=== PATIENT | male | born 1980 | race African-American/Black ===

== ENCOUNTER 2024-07-03 11:58 | Inpatient (IN) | payer SELFPAY ==
[~2024-07-03] VITALS: Ht 187.3 cm; Wt 107.1 kg
[2024-07-03 10:30] VITALS: RESP 20
[2024-07-03] MEDS: DiphenhydrAMINE HCL 50 MG/ML VIAL IM ONE (12:32)
[2024-07-03] MEDS: HALOPERIDOL LACTATE 5 MG/ML VIAL IM ONE (12:33)
[2024-07-03] MEDS: LORazepam 2 MG/ML VIAL IM ONE (12:33)
[2024-07-03 12:56] LABS: COVID AG,FIA SOURCE NASAL SWAB
[2024-07-03 13:43] LABS: SARS-COV2 (COVID) ANTIGEN,FIA Negative (Negative)
[2024-07-03 13:49] LABS: BASOPHILS % (AUTO) 0.7 % (0.0-2.0); EOSINOPHILS % (AUTO) 0.4 % (1.0-6.0); HEMATOCRIT 38.8 % (41-53); HEMOGLOBIN 12.5 g/dL (13.5-17.5); LYMPHOCYTES # (AUTO) 1.9 K/uL (1.0-4.8); MEAN CORPUSCULAR HEMOGLOBIN 26.9 pg (26.0-34.0); MEAN CORPUSCULAR HGB CONC 32.3 G/dL (31.0-37.0); MEAN CORPUSCULAR VOLUME 83 fL (80-100); MONOCYTES # (AUTO) 0.7 K/uL (0.1-1.0); MONOCYTES % (AUTO) 11.9 % (2.0-9.0); NEUTROPHILS # (AUTO) 3.3 K/uL (1.8-7.7); PLATELET COUNT (AUTO) 183 K/uL (150-450); RED BLOOD CELL COUNT(AUTO) 4.66 MIL/uL (4.50-5.90); RED CELL DISTRIBUTION WIDTH 15.1 % (11.5-14.5)
[2024-07-03 13:57] LABS: ANION GAP 9 mmol/L (8-16); CALCIUM, TOTAL 8.3 mg/dL (8.8-10.5); CARBON DIOXIDE 26 mmol/L (22-29); CHLORIDE 103 mmol/L (98-107); CREATININE 0.86 mg/dL (0.60-1.30); GLOMERULAR FILTR. RATE CALC > 60 mL/min (>60); GLUCOSE,RANDOM 94 mg/dL (70-110); POTASSIUM 3.2 mmol/L (3.5-5.1); SODIUM SERUM 138 mmol/L (136-145); UREA NITROGEN, BLOOD 7 mg/dL (7-18)
[2024-07-03 14:04] LABS: ALANINE AMINOTRANSFERASE 58 U/L (12-78); ALBUMIN 3.5 g/dL (3.4-5.0); ALKALINE PHOSPHATASE 82 U/L (46-116); ASPARTATE AMINOTRANSFERASE 43 U/L (15-37); BILIRUBIN,TOTAL 0.6 mg/dL (0.1-1.0); TOTAL PROTEIN, SERUM 6.9 g/dL (6.4-8.2)
[2024-07-03 14:11] LABS: ALCOHOL, BLOOD (SERUM) < 3 mg/dL (0-10)
[2024-07-03] MEDS: POTASSIUM CHLORIDE 20 MEQ ER TABLET PO ONE (15:13)
[2024-07-03 15:43] LABS: ALCOHOL, URINE DRUG SCREEN NEGATIVE (NEGATIVE); AMPHET/METH SCREEN,URINE NEGATIVE (NEGATIVE); BARBITURATE SCREEN, URINE NEGATIVE (NEGATIVE); BENZODIAZEPINES SCREEN,URINE NEGATIVE (NEGATIVE); CANNABINOID SCREEN,URINE POSITIVE (NEGATIVE); COCAINE SCREEN,URINE NEGATIVE (NEGATIVE); METHADONE SCREEN, URINE NEGATIVE (NEGATIVE); OPIATE SCREEN,URINE NEGATIVE (NEGATIVE); PHENCYCLIDINE SCREEN,URINE NEGATIVE (NEGATIVE)
[2024-07-04] MEDS: TraZODone HCL 50 MG TABLET PO ONE (00:21)
[2024-07-04 08:30] VITALS: BP 123/57; PULSE 65; RESP 18
[2024-07-04] MEDS: QUEtiapine FUMARATE 200 MG TABLET PO SCH (11:22)
[2024-07-04] MEDS ORDERED: GuaiFENesin/D-METHORPHAN [SUGAR-FREE] 200-20MG/10 ML SYRUP UDCUP PO PRN (14:30)
[2024-07-04] MEDS ORDERED: IBUPROFEN 400 MG TABLET PO PRN (14:30)
[2024-07-04] MEDS ORDERED: LOPERAMIDE HCL 2 MG CAPSULE PO PRN (14:30)
[2024-07-04] MEDS ORDERED: PETROLATUM,WHITE 28 GM JELLY TP PRN (14:30)
[2024-07-04] MEDS ORDERED: MAG HYDROX/ALUMINUM HYD/SIMETH ES 30 ML SUSPENSION UDCUP PO PRN (14:30)
[2024-07-04] MEDS ORDERED: MAGNESIUM HYDROXIDE SUSPENSION 30 ML UDCUP PO PRN (14:30)
[2024-07-04] MEDS ORDERED: ALBUTEROL SULFATE HFA 90 MCG/PUFF 8 GM INHALER IH PRN (14:30)
[2024-07-04] MEDS ORDERED: CloNIDine HCL 0.1 MG TABLET PO PRN (14:30)
[2024-07-04] MEDS ORDERED: ONDANSETRON HCL 4 MG TABLET PO PRN (14:30)
[2024-07-04] MEDS ORDERED: ACETAMINOPHEN 325 MG TABLET PO PRN (14:30)
[2024-07-04] MEDS ORDERED: NICOTINE 14 MG/24 HOUR PATCH TD PRN (14:30)
[2024-07-04] MEDS ORDERED: DOCUSATE SODIUM 100 MG CAPSULE PO PRN (14:30)
[2024-07-04 22:15] VITALS: RESP 18
[2024-07-05 08:30] VITALS: BP 137/95; PULSE 84; RESP 17; TEMP 97.5
[2024-07-05 09:11] LABS: HEMOGLOBIN A1C 5.6 % (3.8-5.6)
[2024-07-05 09:12] LABS: CHOL/HDL RATIO 2.3 (4.2-7.3)
[2024-07-05 09:22] LABS: THYROID STIMULATING HORMONE 0.88 uIU/mL (0.36-3.74)
[2024-07-05 21:05] VITALS: BP 129/73; PULSE 69; RESP 18; TEMP 97.3
[2024-07-05] MEDS: ZOLPIDEM TARTRATE 10 MG TABLET PO PRN (21:27)
[2024-07-06] MEDS: HALOPERIDOL 5 MG TABLET PO PRN (03:55)
[2024-07-06] MEDS: LORazepam 2 MG TABLET PO PRN (03:56)
[2024-07-06 08:05] VITALS: BP 129/83; PULSE 70; RESP 18; TEMP 96.8
[2024-07-06 22:01] VITALS: BP 145/89; PULSE 89; RESP 18; TEMP 98.1
[2024-07-07 10:07] VITALS: BP 150/92; PULSE 81; RESP 18; TEMP 96.8
[2024-07-07 21:23] VITALS: BP 152/87; PULSE 77; RESP 18; TEMP 97.3
[2024-07-08 09:44] VITALS: BP 133/85; PULSE 72; RESP 19; TEMP 96.9
[2024-07-08 21:55] VITALS: BP 151/82; PULSE 80; RESP 18; TEMP 97.6
[2024-07-09 10:30] VITALS: BP 143/97; PULSE 89; RESP 18; TEMP 97.7
[2024-07-09 21:45] VITALS: BP 141/88; PULSE 77; RESP 18; TEMP 97.9
[2024-07-10 08:59] VITALS: BP 137/90; PULSE 71; RESP 16; TEMP 98.2
[2024-07-10] MEDS ORDERED: QUET200T30 PO (15:01)
== END 2024-07-10 19:09 | disposition home or self-care (01) | DRG 885 ==
LOC: EMS 11:58 → 3EC 07-04 05:54
PROVIDERS: ADMIT Psychiatry & Neurology Psychiatry; ATTEND Psychiatry & Neurology Psychiatry
PROC: GZHZZZZ Group Psychotherapy (ICD-10-PCS; principal; 2024-07-04)
DX: F31.2 Bipolar disorder, current episode manic severe with psychotic features (principal); F12.10 Cannabis abuse, uncomplicated; E87.6 Hypokalemia; Z20.822 Contact with and (suspected) exposure to COVID-19; D64.9 Anemia, unspecified; F17.210 Nicotine dependence, cigarettes, uncomplicated; Z79.899 Other long term (current) drug therapy
CPT/HCPCS: 80048; 80061; 80076; 80307; 83036; 84132; 84443; 85025; 99285; G0480; J1200; J1630; J2060